=== PATIENT | male | born 1935 | race Caucasian/White ===

== ENCOUNTER 2021-03-22 12:40 | Inpatient (IN) | payer MEDICARE ==
[2021-03-22] MEDS ORDERED: MORPHINE SULFATE 4 MG/ML SYRINGE IVP STA (12:51)
[2021-03-22 13:06] LABS: Basophils % (A) 0 %; Eosinophils # (A) 0.1 k/uL (0-0.7); Eosinophils % (A) 0 %; HCT 35.2 % (39.0-53.0); HGB 11.4 gm/dL (13.0-17.5); Hypochromasia Slight; Lymphocytes # (A) 0.3 k/uL (1.0-4.8); Lymphocytes % (A) 2 %; MCH 33.2 pg (25.0-35.0); MCHC 32.4 g/dL (31.0-37.0); MCV 102.6 fL (80.0-100.0); Macrocytosis Slight; Mean Platelet Volume 7.9; Monocytes # (A) 0.6 k/uL (0-1.0); Monocytes % (A) 4 %; Neutrophils # (A) 12.6 k/uL (1.3-7.7); Neutrophils % (A) 93 %; Platelet Count 174 k/uL (150-450); RBC 3.43 m/uL (4.30-5.90); RDW 12.6 % (11.5-15.5); WBC 13.6 k/uL (3.8-10.6)
[2021-03-22 13:15] LABS: Glucose,Whole Blood 231 mg/dL (75-99)
[2021-03-22 13:19] LABS: INR 1.3 (<1.2); Partial Thromboplastin Time 23.7 sec (22.0-30.0); Prothrombin Time 13.1 sec (9.0-12.0)
[2021-03-22 13:21] LABS: ALT 20 U/L (4-49); AST 47 U/L (17-59); African American GFR (CKD) >90 (>60 ml/min/1.73 sqM); Alkaline Phosphatase 87 U/L (38-126); Anion Gap 9 mmol/L; Blood Urea Nitrogen 65 mg/dL (9-20); Calcium 7.5 mg/dL (8.4-10.2); Carbon Dioxide 20 mmol/L (22-30); Chloride 105 mmol/L (98-107); Glucose 241 mg/dL (74-99); Magnesium 1.9 mg/dL (1.6-2.3); Non-African American GFR(CKD) 80 (>60 ml/min/1.73 sqM); Sodium 134 mmol/L (137-145); Total Bilirubin 2.1 mg/dL (0.2-1.3); Total Protein 5.3 g/dL (6.3-8.2)
[2021-03-22 13:26] LABS: Potassium 5.4 mmol/L (3.5-5.1)
[2021-03-22 13:56] LABS: Appearance,Urine Turbid (Clear); Bacteria,Urine Many /hpf; Bilirubin,Urine Negative (Negative); Blood,Urine Large (Negative); Color,Urine Dark Brown; Glucose,Urine (UA) Trace (Negative); Hyaline Casts,Urine 30 /lpf (0-2); Ketones,Urine Negative (Negative); Leukocyte Esterase,Urine Large (Negative); Mucus,Urine Occasional /hpf; Nitrite,Urine Negative (Negative); Protein,Urine 2+ (Negative); RBC,Urine 167 /hpf (0-5); WBC,Urine >182 /hpf (0-5)
--- NOTE | 2021-03-22 13:57 | XR ---
EXAMINATION TYPE: XR chest 1V portable DATE OF EXAM: 03/22/2021 COMPARISON: None INDICATION: Unresponsive TECHNIQUE: Single frontal view of the chest is obtained. FINDINGS: The heart size is enlarged. The pulmonary vasculature is normal. Left lower lobe infiltrate is present. Small effusion is not excluded. Mild infiltrate at the right b ase may be present. IMPRESSION: 1. Bibasilar infiltrates, greater at the left base. Correlate for pneumonia. Atelectasis may be prese nt.
[2021-03-22] MEDS ORDERED: SODIUM CHLORIDE 0.9% 500 ML 500 ML IV ONE ×2 (14:13→16:10)
[2021-03-22] MEDS ORDERED: cefTRIAXone IN SWFI 1,000 MG/10 ML SYRINGE IVP STA (14:13)
[2021-03-22] MEDS ORDERED: HYDROmorphone 1 MG/ML 1 ML SYRINGE IVP PRN (14:14)
[2021-03-22] MEDS ORDERED: LORazepam 2 MG/ML INJ IV PRN (14:14)
[2021-03-22] MEDS ORDERED: ONDANSETRON 4 MG/2 ML VIAL IVP PRN (14:14)
--- NOTE | 2021-03-22 14:24 | ED ---
General Adult HPI - General Chief complaint: Altered Mental Status Stated complaint: failure to thrive Time Seen by Provider: 03/22/21 12:43 Source: EMS, RN notes reviewed, old records reviewed Mode of arrival: EMS Limitations: altered mental status - History of Present Illness Initial comments: 85-year-old male presenting from correction with failure to thrive altered mental status. Patient unable to give a history. He is initially in the wide-complex tachycardia does slow down to sinus rhythm upon arrival. He is hypotensive. I did confirm that this patient is a DO NOT RESUSCITATE with staff at [facility]. The case was discussed with his legal guardian and it was felt that medical measures as well as comfort care would be appropriate at this time. No resuscitation. No aggressive efforts. - Related Data Home Medications Medication Instructions Recorded Confirmed Acetaminophen [Tylenol] 650 mg PO Q4H PRN 03/22/21 03/22/21 Aspirin EC [Ecotrin Low Dose] 81 mg PO DAILY 03/22/21 03/22/21 Atorvastatin [Lipitor] 20 mg PO HS 03/22/21 03/22/21 Isosorbide Mononitrate ER [Imdur] 30 mg PO DAILY 03/22/21 03/22/21 Lactose-Reduced Food [Ensure Plus] 240 ml PO BID 03/22/21 03/22/21 Losartan [Cozaar] 50 mg PO DAILY 03/22/21 03/22/21 Melatonin 6 mg PO HS 03/22/21 03/22/21 Metoprolol Tartrate [Lopressor] 12.5 mg PO TID@0900,1300,2100 03/22/21 03/22/21 fentaNYL 12MCG/HR PATCH [Duragesic 1 patch TRANSDERM Q72H 03/22/21 03/22/21 12MCG/HR] guaiFENesin [Mucinex] 600 mg PO BID 03/22/21 03/22/21 Allergies Allergy/AdvReac Type Severity Reaction Status Date / Time No Known Allergies Allergy Verified 03/22/21 14:05 Review of Systems ROS Statement: Those systems with pertinent positive or pertinent negative responses have been documented in the HPI. ROS Other: All systems not noted in ROS Statement are negative. Past Medical History Past Medical History: Chest Pain / Angina, Hypertension History of Any Multi-Drug Resistant Organisms: Unobtainable Past Surgical History: Unable to Obtain Past Psychological History: Unable to Obtain Past Alcohol Use History: Unable to Obtain Past Drug Use History: Unable to Obtain General Exam General appearance: lethargic, in distress Head exam: Present: atraumatic, normocephalic Eye exam: Present: normal appearance, PERRL ENT exam: Present: mucous membranes dry Respiratory exam: Present: respiratory distress, decreased breath sounds, other (Tachypnea) Cardiovascular Exam: Present: tachycardia, irregular rhythm GI/Abdominal exam: Present: soft. Absent: distended, tenderness Extremities exam: Absent: normal capillary refill, pedal edema Neurological exam: Absent: alert, oriented X3 Skin exam: Present: warm, dry, intact, pallor Course Vital Signs 03/22/21 03/22/21 03/22/21 12:41 12:50 13:02 Temperature 98.1 F Pulse Rate 155 H 105 H 163 H Respiratory 32 H 34 H 32 H Rate Blood Pressure 55/24 80/56 96/64 O2 Sat by Pulse 98 98 99 Oximetry 03/22/21 03/22/21 13:11 13:50 Temperature Pulse Rate 158 H 96 Respiratory 38 H 30 H Rate Blood Pressure 71/46 78/64 O2 Sat by Pulse 97 95 Oximetry EKG Findings - EKG Comments: EKG Findings:: EKG: Sinus tachycardia with right bundle-branch block, diffuse ST segment depression, question elevation in lead 3 and aVR rate of 106, W[place] interval 168, QRS duration 168, QTC 528. Medical Decision Making - Medical Decision Making 85-year-old male presenting in extremis, hypotensive tachycardic. Patient does appear uncomfortable in moderate respiratory distress. He is a DO NOT RESUSCITATE. Workup is initiated for this patient, he has a chest x-ray showing minimal infiltrate. Has mild leukocytosis, hemoglobin of 11. His potassium is 5.4. He has a lactic acid 2.1. He has a troponin of 0.19. He does have a nonischemic-appearing EKG. His albumin is 2.0. Urinalysis shows significant infection. At this time the patient will receive IV fluids and IV antibiotics he will be placed on comfort measures. Case discussed with Dr. Villar. - Lab Data Result diagrams: 03/22/21 12:57 03/22/21 12:57 Lab Results 01/19/22 01/19/22 01/19/22 Range/Units 12:57 12:57 12:57 WBC 13.6 H (3.8-10.6) k/uL RBC 3.43 L (4.30-5.90) m/uL Hgb 11.4 L (13.0-17.5) gm/dL Hct 35.2 L (39.0-53.0) % MCV 102.6 H (80.0-100.0) fL MCH 33.2 (25.0-35.0) pg MCHC 32.4 (31.0-37.0) g/dL RDW 12.6 (11.5-15.5) % Plt Count 174 (150-450) k/uL MPV 7.9 Neutrophils % 93 % Lymphocytes % 2 % Monocytes % 4 % Eosinophils % 0 % Basophils % 0 % Neutrophils # 12.6 H (1.3-7.7) k/uL Lymphocytes # 0.3 L (1.0-4.8) k/uL Monocytes # 0.6 (0-1.0) k/uL Eosinophils # 0.1 (0-0.7) k/uL Basophils # 0.0 (0-0.2) k/uL Hypochromasia Slight Macrocytosis Slight PT 13.1 H (9.0-12.0) sec INR 1.3 H (<1.2) APTT 23.7 (22.0-30.0) sec Sodium 134 L (137-145) mmol/L Potassium 5.4 H (3.5-5.1) mmol/L Chloride 105 (98-107) mmol/L Carbon Dioxide 20 L (22-30) mmol/L Anion Gap 9 mmol/L BUN 65 H (9-20) mg/dL Creatinine 0.83 (0.66-1.25) mg/dL Est GFR (CKD-EPI)AfAm >90 (>60 ml/min/1.73 sqM) Est GFR (CKD-EPI)NonAf 80 (>60 ml/min/1.73 sqM) Glucose 241 H (74-99) mg/dL POC Glucose (mg/dL) (75-99) mg/dL POC Glu Ground Host/Hostess ID Plasma Lactic Acid Patrick (0.7-2.0) mmol/L Calcium 7.5 L (8.4-10.2) mg/dL Magnesium 1.9 (1.6-2.3) mg/dL Total Bilirubin 2.1 H (0.2-1.3) mg/dL AST 47 (17-59) U/L ALT 20 (4-49) U/L Alkaline Phosphatase 87 (38-126) U/L Troponin I (0.000-0.034) ng/mL Total Protein 5.3 L (6.3-8.2) g/dL Albumin 2.0 L (3.5-5.0) g/dL Urine Color Urine Appearance (Clear) Urine pH (5.0-8.0) Ur Specific [place] (1.001-1.035) Urine Protein (Negative) Urine Glucose (UA) (Negative) Urine Ketones (Negative) Urine Blood (Negative) Urine Nitrite (Negative) Urine Bilirubin (Negative) Urine Urobilinogen (<2.0) mg/dL Ur Leukocyte Esterase (Negative) Urine RBC (0-5) /hpf Urine WBC (0-5) /hpf Urine WBC Clumps (None) /hpf Urine Bacteria (None) /hpf Hyaline Casts (0-2) /lpf Urine Mucus (None) /hpf 03/22/21 03/22/21 03/22/21 Range/Units 12:57 12:57 13:12 WBC (3.8-10.6) k/uL RBC (4.30-5.90) m/uL Hgb (13.0-17.5) gm/dL Hct (39.0-53.0) % MCV (80.0-100.0) fL MCH (25.0-35.0) pg MCHC (31.0-37.0) g/dL RDW (11.5-15.5) % Plt Count (150-450) k/uL MPV Neutrophils % % Lymphocytes % % Monocytes % % Eosinophils % % Basophils % % Neutrophils # (1.3-7.7) k/uL Lymphocytes # (1.0-4.8) k/uL Monocytes # (0-1.0) k/uL Eosinophils # (0-0.7) k/uL Basophils # (0-0.2) k/uL Hypochromasia Macrocytosis PT (9.0-12.0) sec INR (<1.2) APTT (22.0-30.0) sec Sodium (137-145) mmol/L Potassium (3.5-5.1) mmol/L Chloride (98-107) mmol/L Carbon Dioxide (22-30) mmol/L Anion Gap mmol/L BUN (9-20) mg/dL Creatinine (0.66-1.25) mg/dL Est GFR (CKD-EPI)AfAm (>60 ml/min/1.73 sqM) Est GFR (CKD-EPI)NonAf (>60 ml/min/1.73 sqM) Glucose (74-99) mg/dL POC Glucose (mg/dL) 231 H (75-99) mg/dL POC Glu Ground Host/Hostess ID Nena Lopez Plasma Lactic Acid Patrick 2.8 H* (0.7-2.0) mmol/L Calcium (8.4-10.2) mg/dL Magnesium (1.6-2.3) mg/dL Total Bilirubin (0.2-1.3) mg/dL AST (17-59) U/L ALT (4-49) U/L Alkaline Phosphatase (38-126) U/L Troponin I 0.194 H* (0.000-0.034) ng/mL Total Protein (6.3-8.2) g/dL Albumin (3.5-5.0) g/dL Urine Color Urine Appearance (Clear) Urine pH (5.0-8.0) Ur Specific [place] (1.001-1.035) Urine Protein (Negative) Urine Glucose (UA) (Negative) Urine Ketones (Negative) Urine Blood (Negative) Urine Nitrite (Negative) Urine Bilirubin (Negative) Urine Urobilinogen (<2.0) mg/dL Ur Leukocyte Esterase (Negative) Urine RBC (0-5) /hpf Urine WBC (0-5) /hpf Urine WBC Clumps (None) /hpf Urine Bacteria (None) /hpf Hyaline Casts (0-2) /lpf Urine Mucus (None) /hpf 03/22/21 Range/Units 13:20 WBC (3.8-10.6) k/uL RBC (4.30-5.90) m/uL Hgb (13.0-17.5) gm/dL Hct (39.0-53.0) % MCV (80.0-100.0) fL MCH (25.0-35.0) pg MCHC (31.0-37.0) g/dL RDW (11.5-15.5) % Plt Count (150-450) k/uL MPV Neutrophils % % Lymphocytes % % Monocytes % % Eosinophils % % Basophils % % Neutrophils # (1.3-7.7) k/uL Lymphocytes # (1.0-4.8) k/uL Monocytes # (0-1.0) k/uL Eosinophils # (0-0.7) k/uL Basophils # (0-0.2) k/uL Hypochromasia Macrocytosis PT (9.0-12.0) sec INR (<1.2) APTT (22.0-30.0) sec Sodium (137-145) mmol/L Potassium (3.5-5.1) mmol/L Chloride (98-107) mmol/L Carbon Dioxide (22-30) mmol/L Anion Gap mmol/L BUN (9-20) mg/dL Creatinine (0.66-1.25) mg/dL Est GFR (CKD-EPI)AfAm (>60 ml/min/1.73 sqM) Est GFR (CKD-EPI)NonAf (>60 ml/min/1.73 sqM) Glucose (74-99) mg/dL POC Glucose (mg/dL) (75-99) mg/dL POC Glu Ground Host/Hostess ID Plasma Lactic Acid Patrick (0.7-2.0) mmol/L Calcium (8.4-10.2) mg/dL Magnesium (1.6-2.3) mg/dL Total Bilirubin (0.2-1.3) mg/dL AST (17-59) U/L ALT (4-49) U/L Alkaline Phosphatase (38-126) U/L Troponin I (0.000-0.034) ng/mL Total Protein (6.3-8.2) g/dL Albumin (3.5-5.0) g/dL Urine Color Dark Brown Urine Appearance Turbid (Clear) Urine pH 6.0 (5.0-8.0) Ur Specific [place] 1.020 (1.001-1.035) Urine Protein 2+ H (Negative) Urine Glucose (UA) Trace H (Negative) Urine Ketones Negative (Negative) Urine Blood Large H (Negative) Urine Nitrite Negative (Negative) Urine Bilirubin Negative (Negative) Urine Urobilinogen 3.0 (<2.0) mg/dL Ur Leukocyte Esterase Large H (Negative) Urine RBC 167 H (0-5) /hpf Urine WBC >182 H (0-5) /hpf Urine WBC Clumps Many H (None) /hpf Urine Bacteria Many H (None) /hpf Hyaline Casts 30 H (0-2) /lpf Urine Mucus Occasional H (None) /hpf Disposition Clinical Impression: Sepsis, Altered mental status, Delirium due to general medical condition, Failure to thrive in adult, Elevated troponin, UTI (urinary tract infection), Need for comfort care Disposition: ADMITTED IP TO THIS [facility] Condition: Serious Is patient prescribed a controlled substance at d/c from ED?: No Referrals: Yvonne Man MD [Primary Care Provider] - 1-2 days Decision to Admit Reason: Admit from EC Decision Date: 03/22/21 Decision Time: 14:23
[2021-03-22] MEDS: SODIUM CHLORIDE 0.9% 1,000 ML IV SCH (14:39)
[2021-03-22] MEDS ORDERED: SODIUM CHLORIDE 0.9% 1,000 ML IV STA (14:52)
[2021-03-22] MEDS ORDERED: ARTIFICIAL TEARS-HYPROMELLOSE DROPS 15 ML BTL BOTH EYES PRN (15:59)
[2021-03-22] MEDS ORDERED: DIPHENOX-ATROP 2.5-0.025MG/5ML 60 ML BOTTLE PO PRN (15:59)
[2021-03-22] MEDS ORDERED: ATROPINE OPHTH SOLN 1% 5ML BTL SUBLINGUAL PRN (15:59)
[2021-03-22] MEDS ORDERED: DRY MOUTH SPRAY 44.3 SPRAY/44.3 ML SPRAY MUCOUS MEM PRN (15:59)
--- NOTE | 2021-03-22 16:41 | P.HPIM ---
History of Present Illness H&P Date: 03/22/21 Chief Complaint: Altered mental status, failure to thrive, sepsis History of present illness 85 years old male patient of Dr. Petersen with past medical history of hypertension, diabetes, cardiomyopathy, BPH, rhabdomyolysis previously in November 2019, history of UTI with bacteremia who was recently admitted at [facility] with multiple falls and altered mental status. Patient was in the hospital from 02/28 to and was finally discharged to [facility] under Dr. Man's care. According to the prison patient was getting significantly worse, had decreased oral intake not participating with therapy and increased confusion. He was brought in to the hospital for evaluation. On admission patient was noted to be in wide complex tachycardia but converted to normal sinus rhythm. He was noted to be in sinus tachycardia on the EKG with bit bundle branch block. Patient's blood pressure on admission was 55/24 with a heart rate of 155 afebrile. 2 L Patient has a legal guardian and detailed discussion on patient's health condition was done by ER physician and myself. Patient received 30 mL/kg of fluid bolus with slight improvement in his blood pressure. Patient was evaluated in the ER, he is unresponsive unable to make any comments. He is thrashing his limbs and unable to make any meaningful conversation. Patient appears significantly dehydrated. His urine is dark. Creatinine 0.83 glucose 241 leg lactic acid 2.8 troponin 0.19 for albumin of 2. UA suggestive of large ketones, large leukocyte Estrace WBC more than 182. Patient given 2 g of Rocephin stat. Detailed discussion with the legal guardian who was made by the ER physician and by myself and was decided to place patient on comfort measures. No aggressive measures. Patient is a no code. Antibiotics will be administered to see if patient would recover. ROS unable to obtain Social history Nonsmoker. Nondrinker lived in [facility] since 03/09 Family history Mom dad were unclear etiology. No brother or sister no children Physical exam - Constitutional General appearance: Uncooperative, agitated, confused unable to participate in exam, thin-appearing cachectic - EENT Eyes: anicteric sclerae, pupils myosis noted reacts to light ENT: hearing grossly normal - Neck Neck: no lymphadenopathy, normal ROM, no other, no rigidity, no stridor, no thyromegaly - Respiratory Respiratory: Tachypneic with Shallow breathing bilateral diminished, with rhonchi , no wheezing - Cardiovascular Rhythm: irregularly irregular Heart sounds: normal: S1, S2 Abnormal Heart Sounds: no systolic murmur, no diastolic murmur, no rub, no S3 Gallop, no S4 Gallop, no click, no other - Gastrointestinal General gastrointestinal: normal bowel sounds, soft non tedner - Integumentary Integumentary: multiple bruises involving the knee and face , appear old - Neurologic Neurologic: Could not be assessed. Patient is uncooperative. Keeps his eyes closed and multiple open and is taking shallow breathing - Musculoskeletal Musculoskeletal: Weakness involving bilateral lower extremities - Psychiatric Psychiatric: Oriented 0, drowsy Assessment and plan Acute infectious metabolic encephalopathy with failure to thrive - CT obtained in the other hospital reviewed was negative for any stroke. 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 - BPH Code status no code Condition - poor prognosis , hospice consult Past Medical History Past Medical History: Chest Pain / Angina, Hypertension History of Any Multi-Drug Resistant Organisms: Unobtainable Past Surgical History: Unable to Obtain Past Psychological History: Unable to Obtain Past Alcohol Use History: Unable to Obtain Past Drug Use History: Unable to Obtain - Past Family History Father Family Medical History: Unable to Obtain Mother Family Medical History: Unable to Obtain Medications and Allergies Home Medications Medication Instructions Recorded Confirmed Type Acetaminophen [Tylenol] 650 mg PO Q4H PRN 03/22/21 03/22/21 History Aspirin EC [Ecotrin Low Dose] 81 mg PO DAILY 03/22/21 03/22/21 History Atorvastatin [Lipitor] 20 mg PO HS 03/22/21 03/22/21 History Isosorbide Mononitrate ER [Imdur] 30 mg PO DAILY 03/22/21 03/22/21 History Lactose-Reduced Food [Ensure Plus] 240 ml PO BID 03/22/21 03/22/21 History Losartan [Cozaar] 50 mg PO DAILY 03/22/21 03/22/21 History Melatonin 6 mg PO HS 03/22/21 03/22/21 History Metoprolol Tartrate [Lopressor] 12.5 mg PO TID@0900,1300,2100 03/22/21 03/22/21 History fentaNYL 12MCG/HR PATCH [Duragesic 1 patch TRANSDERM Q72H 03/22/21 03/22/21 History 12MCG/HR] guaiFENesin [Mucinex] 600 mg PO BID 03/22/21 03/22/21 History Allergies Allergy/AdvReac Type Severity Reaction Status Date / Time No Known Allergies Allergy Verified 03/22/21 14:05 Physical Exam Vitals: Vital Signs Temp Pulse Pulse Resp BP Pulse Ox 03/22/21 15:20 158 H 03/22/21 14:00 96 28 H 84/53 96 03/22/21 13:50 96 30 H 78/64 95 03/22/21 13:11 158 H 38 H 71/46 97 03/22/21 13:02 163 H 32 H 96/64 99 03/22/21 12:50 105 H 34 H 80/56 98 03/22/21 12:41 98.1 F 155 H 32 H 55/24 98 Intake and Output 03/22/21 03/22/21 03/22/21 06:59 14:59 22:59 Other: Weight 70.216 kg Results CBC & Chem 7: 03/22/21 12:57 03/22/21 12:57 Labs: Abnormal Lab Results - Last 24 Hours (Table) 03/22/21 03/22/21 03/22/21 Range/Units 12:57 12:57 12:57 WBC 13.6 H (3.8-10.6) k/uL RBC 3.43 L (4.30-5.90) m/uL Hgb 11.4 L (13.0-17.5) gm/dL Hct 35.2 L (39.0-53.0) % MCV 102.6 H (80.0-100.0) fL Neutrophils # 12.6 H (1.3-7.7) k/uL Lymphocytes # 0.3 L (1.0-4.8) k/uL PT 13.1 H (9.0-12.0) sec INR 1.3 H (<1.2) Sodium 134 L (137-145) mmol/L Potassium 5.4 H (3.5-5.1) mmol/L Carbon Dioxide 20 L (22-30) mmol/L BUN 65 H (9-20) mg/dL Glucose 241 H (74-99) mg/dL POC Glucose (mg/dL) (75-99) mg/dL Plasma Lactic Acid Patrick (0.7-2.0) mmol/L Calcium 7.5 L (8.4-10.2) mg/dL Total Bilirubin 2.1 H (0.2-1.3) mg/dL Troponin I (0.000-0.034) ng/mL Total Protein 5.3 L (6.3-8.2) g/dL Albumin 2.0 L (3.5-5.0) g/dL Urine Protein (Negative) Urine Glucose (UA) (Negative) Urine Blood (Negative) Ur Leukocyte Esterase (Negative) Urine RBC (0-5) /hpf Urine WBC (0-5) /hpf Urine WBC Clumps (None) /hpf Urine Bacteria (None) /hpf Hyaline Casts (0-2) /lpf Urine Mucus (None) /hpf 03/22/21 03/22/21 03/22/21 Range/Units 12:57 12:57 13:12 WBC (3.8-10.6) k/uL RBC (4.30-5.90) m/uL Hgb (13.0-17.5) gm/dL Hct (39.0-53.0) % MCV (80.0-100.0) fL Neutrophils # (1.3-7.7) k/uL Lymphocytes # (1.0-4.8) k/uL PT (9.0-12.0) sec INR (<1.2) Sodium (137-145) mmol/L Potassium (3.5-5.1) mmol/L Carbon Dioxide (22-30) mmol/L BUN (9-20) mg/dL Glucose (74-99) mg/dL POC Glucose (mg/dL) 231 H (75-99) mg/dL Plasma Lactic Acid Patrick 2.8 H* (0.7-2.0) mmol/L Calcium (8.4-10.2) mg/dL Total Bilirubin (0.2-1.3) mg/dL Troponin I 0.194 H* (0.000-0.034) ng/mL Total Protein (6.3-8.2) g/dL Albumin (3.5-5.0) g/dL Urine Protein (Negative) Urine Glucose (UA) (Negative) Urine Blood (Negative) Ur Leukocyte Esterase (Negative) Urine RBC (0-5) /hpf Urine WBC (0-5) /hpf Urine WBC Clumps (None) /hpf Urine Bacteria (None) /hpf Hyaline Casts (0-2) /lpf Urine Mucus (None) /hpf 03/22/21 Range/Units 13:20 WBC (3.8-10.6) k/uL RBC (4.30-5.90) m/uL Hgb (13.0-17.5) gm/dL Hct (39.0-53.0) % MCV (80.0-100.0) fL Neutrophils # (1.3-7.7) k/uL Lymphocytes # (1.0-4.8) k/uL PT (9.0-12.0) sec INR (<1.2) Sodium (137-145) mmol/L Potassium (3.5-5.1) mmol/L Carbon Dioxide (22-30) mmol/L BUN (9-20) mg/dL Glucose (74-99) mg/dL POC Glucose (mg/dL) (75-99) mg/dL Plasma Lactic Acid Patrick (0.7-2.0) mmol/L Calcium (8.4-10.2) mg/dL Total Bilirubin (0.2-1.3) mg/dL Troponin I (0.000-0.034) ng/mL Total Protein (6.3-8.2) g/dL Albumin (3.5-5.0) g/dL Urine Protein 2+ H (Negative) Urine Glucose (UA) Trace H (Negative) Urine Blood Large H (Negative) Ur Leukocyte Esterase Large H (Negative) Urine RBC 167 H (0-5) /hpf Urine WBC >182 H (0-5) /hpf Urine WBC Clumps Many H (None) /hpf Urine Bacteria Many H (None) /hpf Hyaline Casts 30 H (0-2) /lpf Urine Mucus Occasional H (None) /hpf
[2021-03-22 20:51] VITALS: BP 76/45
[2021-03-23] MEDS: SODIUM CHLORIDE 0.9% 1,000 ML IV SCH ×2 (01:10→08:10)
[2021-03-23 08:18] VITALS: PULSE 79; RESP 16; TEMP 99
[2021-03-23] MEDS ORDERED: SODIUM CHLORIDE 0.9% 1,000 ML IV ONE (11:21)
--- NOTE | 2021-03-23 14:42 | P.DS ---
Providers Date of admission: 03/22/21 14:15 Expected date of discharge: 03/23/21 Attending physician: Patrizia Villar MD Primary care physician: Yvonne Man [facility] Course: History of present illness 85 years old male patient of Dr. Petersen with past medical history of hypertension, diabetes, cardiomyopathy, BPH, rhabdomyolysis previously in November 2019, history of UTI with bacteremia who was recently admitted at [facility] with multiple falls and altered mental status. Patient was in the hospital from 02/28 to and was finally discharged to [facility] under Dr. Man's care. According to the correction patient was getting significantly worse, had decreased oral intake not participating with therapy and increased confusion. He was brought in to the hospital for evaluation. On admission patient was noted to be in wide complex tachycardia but converted to normal sinus rhythm. He was noted to be in sinus tachycardia on the EKG with bit bundle branch block. Patient's blood pressure on admission was 55/24 with a heart rate of 155 afebrile. 2 L Patient has a legal guardian and detailed discussion on patient's health condition was done by ER physician and myself. Patient received 30 mL/kg of fluid bolus with slight improvement in his blood pressure. Patient was evaluated in the ER, he is unresponsive unable to make any comments. He is thrashing his limbs and unable to make any meaningful conversation. Patient appears significantly dehydrated. His urine is dark. Creatinine 0.83 glucose 241 leg lactic acid 2.8 troponin 0.19 for albumin of 2. UA suggestive of large ketones, large leukocyte Estrace WBC more than 182. Patient given 2 g of Rocephin stat. Detailed discussion with the legal guardian who was made by the ER physician and by myself and was decided to place patient on comfort measures. No aggressive measures. Patient is a no code. Antibiotics will be administered to see if patient would recover. 03/23: Patient is able to open his eyes and nod his head when asked questions but then dressed back to sleep. He has a guardian in place but does not want any aggressive treatment. There is agreement for hospice care. [facility] has been in to the hospital to review his case and will open at home with neighbor providing care. Patient will be discharged today once all arrangements are completed. DISCHARGE DIAGNOSES Acute infectious metabolic encephalopathy with failure to thrive Septic shock with hypovolemi Acute UTI sepsis Failure to thrvie Chronic medical condition -DDD -Type 2 DM - BPH DISCHARGE PLAN Home with [facility] Greater than 35 minutes was utilized and coordinating patient's discharge. Impression and plan of care have been directed as dictated by the signing physician. Belinda Hopson nurse practitioner acting as scribe for signing vladislav bridgesian. Patient Condition at Discharge: Serious Plan - Discharge Summary New Discharge Prescriptions: New Artificial Tears-Hypromellose [Artificial Tear Drops] 1 drops BOTH EYES Q2HR PRN ml PRN Reason: Dry Eye(S) Continue fentaNYL 12MCG/HR PATCH [Duragesic 12MCG/HR] 1 patch TRANSDERM Q72H Discontinued guaiFENesin [Mucinex] 600 mg PO BID Melatonin 6 mg PO HS Isosorbide Mononitrate ER [Imdur] 30 mg PO DAILY Losartan [Cozaar] 50 mg PO DAILY Aspirin EC [Ecotrin Low Dose] 81 mg PO DAILY Metoprolol Tartrate [Lopressor] 12.5 mg PO TID@0900,1300,2100 Lactose-Reduced Food [Ensure Plus] 240 ml PO BID Atorvastatin [Lipitor] 20 mg PO HS Acetaminophen [Tylenol] 650 mg PO Q4H PRN PRN Reason: Pain Discharge Medication List fentaNYL 12MCG/HR PATCH [Duragesic 12MCG/HR] 1 patch TRANSDERM Q72H 03/22/21 [History] Artificial Tears-Hypromellose [Artificial Tear Drops] 1 drops BOTH EYES Q2HR PRN ml 03/23/21 [Rx] Follow up Appointment(s)/Referral(s): [facility] [NON-STAFF] - As Needed Yvonne Man MD [Primary Care Provider] - As Needed Discharge Disposition: HOME WITH HOSPICE
== END 2021-03-23 17:39 | disposition hospice, home (50) | DRG 871 ==
LOC: EC 12:40 → EEVIPCON 12:40 → 5NMEDONC 14:15 → 4SSUR 18:03
PROVIDERS: ADMIT Internal Medicine; ATTEND Internal Medicine
DX: A41.9 Sepsis, unspecified organism (principal); G93.41 Metabolic encephalopathy; R65.21 Severe sepsis with septic shock; N39.0 Urinary tract infection, site not specified; R57.1 Hypovolemic shock; Z66 Do not resuscitate; Z51.5 Encounter for palliative care; I42.9 Cardiomyopathy, unspecified; R62.7 Adult failure to thrive; M62.82 Rhabdomyolysis; I45.10 Unspecified right bundle-branch block; F05 Delirium due to known physiological condition; R00.0 Tachycardia, unspecified; R29.6 Repeated falls; I10 Essential (primary) hypertension; E11.9 Type 2 diabetes mellitus without complications; N40.0 Benign prostatic hyperplasia without lower urinary tract symptoms; E86.0 Dehydration; I45.4 Nonspecific intraventricular block; Z79.82 Long term (current) use of aspirin; Z79.899 Other long term (current) drug therapy; Z87.440 Personal history of urinary (tract) infections; Z91.81 History of falling
CPT/HCPCS: 36415; 71045; 80053; 81001; 83605; 83735; 84484; 85025; 85610; 85730; 87077; 87086; 87186; 93005; 96374; 96375; 99285